=== PATIENT | female | born 1960 | race African-American/Black ===

== ENCOUNTER 2017-06-05 16:16 | Inpatient (IN) ==
[2017-06-05 18:32] LABS: Basophils % 0.6 % (0.0-0.8); Hematocrit 22.3 VOL% (35.7-47.0); Hemoglobin 6.7 GM/DL (12.0-16.0); Immature Granulocytes % 0.6 %; Immature Granulocytes Absolute 0.02 #; Lymphocytes # 0.5 10*3/uL (1.4-4.0); Lymphocytes % 14.8 % (21.3-54.2); Mean Corpuscular Hemoglobin 24 PG (27-34); Mean Corpuscular Volume 78.8 FL (87-102); Monocytes # 0.7 10*3/uL (0.11-0.8); Monocytes % 19.1 % (1.7-12.7); NRBC # 0.02 10*3/uL; Neutrophils # 2.2 10*3/uL (1.4-7.4); Neutrophils % 64.9 % (38.7-73.9); Platelet Count 166 T/CUMM (130-400); Red Blood Count 2.83 MC/CUMM (3.8-5.5); White Blood Count 3.5 T/CUMM (4-12)
[2017-06-05] MEDS ORDERED: guaiFENesin/DM ER 600-30 MG TABLET PO PRN (18:34)
[2017-06-05] MEDS ORDERED: MORPHINE 2 MG/1 ML SYRINGE IV PRN (18:34)
[2017-06-05] MEDS ORDERED: ONDANSETRON 4 MG/2 ML VIAL IV PRN (18:34)
[2017-06-05] MEDS ORDERED: DOCUSATE SODIUM 100 MG CAPSULE PO PRN (18:34)
[2017-06-05] MEDS ORDERED: diphenhydrAMINE CAP 25 MG CAPSULE PO PRN (18:34)
[2017-06-05 18:36] LABS: Albumin 2.7 G/DL (3.4-5.0); Bilirubin,Total 1.7 MG/DL (0.2-1.0); Total Protein 8.2 G/DL (6.4-8.3)
[2017-06-05 18:37] LABS: CKMB % 3.3 %; Osmolality,Calculated 315.1 MOS/KG (273-304); Potassium 4.1 MMOL/L (3.5-5.1)
[2017-06-05 18:43] LABS: Apearance,Urine CLEAR (Clear); Bacteria,Urine Occasional /HPF (Few); Bilirubin,Urine Negative (Negative); Blood, Urine Small mg/dL (Negative); Glucose,Urine (UA) 50 mg/dL (Negative); Ketones,Urine Negative (Negative); Nitrite,Urine Negative (Negative); Protein,Urine Negative; RBC,Urine 15 /HPF (0-4); Urine Color Yellow (Yellow); Urine Specific Gravity 1.009 (1.001-1.035); WBC,Urine 8 /HPF (0-6)
[2017-06-05 18:44] LABS: Troponin I Only 0.055 NG/ML (0.00-0.045)
[2017-06-05] MEDS ORDERED: SODIUM CHLORIDE 0.9% 1,000 ML IV PRN (19:00)
[2017-06-05] MEDS ORDERED: FUROSEMIDE 40 MG/4 ML VIAL IV SCH (19:00)
[2017-06-05 20:59] LABS: Hypochromasia 1+; Lymphocytes 17 % (20-55); Myelocytes 1 %; Ovalocytes Few; Platelet Estimate Adequate; Polychromasia Few; Segmented Neutrophils 75 % (50-85); Target Cells Few; Total Cells Counted 100
[2017-06-05 22:26] LABS: Troponin I Only 0.044 NG/ML (0.00-0.045)
[2017-06-05] MEDS: ENOXAPARIN 30 MG/0.3 ML SYRINGE SUBCUT SCH (22:27)
[2017-06-05] MEDS: FUROSEMIDE 40 MG/4 ML VIAL IV SCH (22:28)
[2017-06-05] MEDS: cloNIDine 0.1 MG TABLET PO SCH (22:28)
[2017-06-05 22:48] LABS: CKMB % 3.2 %
[2017-06-06 07:48] LABS: CKMB % 3.7 %
[2017-06-06 07:56] LABS: Calcium 9.1 MG/DL (8.5-10.1); Osmolality,Calculated 315.8 MOS/KG (273-304); Potassium 4.1 MMOL/L (3.5-5.1); Risk Ratio 4.17; Thyroid Stimulating Hormone 0.517 uIU/ml (0.358-3.74); VLDL CHOLESTEROL 17.2 MG/DL
[2017-06-06 07:57] LABS: Troponin I Only 0.047 NG/ML (0.00-0.045)
[2017-06-06 08:45] LABS: Basophils % 0.6 % (0.0-0.8); Eosinophils # 0.1 10*3/uL (0.0-0.87); Eosinophils % 3.5 % (0.00-10.9); Hematocrit 28.9 VOL% (35.7-47.0); Hematocrit 29.2 VOL% (35.7-47.0); Hemoglobin 9.2 GM/DL (12.0-16.0); Immature Granulocytes % 0.3 %; Immature Granulocytes Absolute 0.01 #; Lymphocytes # 0.4 10*3/uL (1.4-4.0); Lymphocytes % 12.8 % (21.3-54.2); Mean Corpuscular HGB Conc 30.8 GM/DL (32-36); Mean Corpuscular Hemoglobin 25 PG (27-34); Mean Corpuscular Volume 81.1 FL (87-102); Monocytes # 0.6 10*3/uL (0.11-0.8); Monocytes % 16.6 % (1.7-12.7); NRBC # 0.02 10*3/uL; Neutrophils # 2.3 10*3/uL (1.4-7.4); Neutrophils % 66.2 % (38.7-73.9); Platelet Count 135 T/CUMM (130-400); Red Cell Distribution Width 20.6 % (9.3-17.3); White Blood Count 3.4 T/CUMM (4-12)
[2017-06-06] MEDS: PANTOPRAZOLE 40 MG TABLET PO SCH (09:57)
[2017-06-06] MEDS: cloNIDine 0.1 MG TABLET PO SCH ×2 (09:57→21:04)
[2017-06-06] MEDS: FUROSEMIDE 40 MG/4 ML VIAL IV SCH ×2 (09:59→21:06)
[2017-06-06] MEDS ORDERED: SKIN HEALING OINT (AQUAPHOR) 50 GM TUBE TOP PRN (10:26)
[2017-06-06 11:38] LABS: Acanthocytes Few; Band Neutrophils 1 % (0-10); Eosinophils 1 % (0-10); Hypochromasia 2+; Lymphocytes 12 % (20-55); Macrocytosis 1+; Nucleated Red Blood Cells 1 (0-5); Platelet Estimate Decreased; Polychromasia Slight; Segmented Neutrophils 77 % (50-85); Spherocytes Few; Target Cells Slight; Total Cells Counted 100
[2017-06-06] MEDS ORDERED: GLUCAGON 1 MG VIAL IM PRN (17:24)
[2017-06-06] MEDS ORDERED: DEXTROSE 50% 25 GM/50 ML VIAL IV PRN (17:24)
[2017-06-06] MEDS: ACETAMINOPHEN 325 MG TABLET PO PRN (21:04)
[2017-06-06] MEDS: ENOXAPARIN 30 MG/0.3 ML SYRINGE SUBCUT SCH (21:05)
[2017-06-06] MEDS: INSULIN REGULAR 100 UNIT/ML SUBCUT SCH (21:05)
[2017-06-07] MEDS: ACETAMINOPHEN 325 MG TABLET PO PRN ×2 (01:34→21:28)
[2017-06-07 06:11] LABS: Basophils % 0.2 % (0.0-0.8); Hematocrit 28.5 VOL% (35.7-47.0); Hemoglobin 8.7 GM/DL (12.0-16.0); Immature Granulocytes % 0.2 %; Immature Granulocytes Absolute 0.01 #; Lymphocytes # 0.5 10*3/uL (1.4-4.0); Lymphocytes % 10.7 % (21.3-54.2); Mean Corpuscular HGB Conc 30.5 GM/DL (32-36); Mean Corpuscular Hemoglobin 25 PG (27-34); Monocytes # 0.7 10*3/uL (0.11-0.8); Monocytes % 13.3 % (1.7-12.7); NRBC # 0.02 10*3/uL; Neutrophils # 3.8 10*3/uL (1.4-7.4); Neutrophils % 75.6 % (38.7-73.9); Platelet Count 111 T/CUMM (130-400); Red Blood Count 3.52 MC/CUMM (3.8-5.5); Red Cell Distribution Width 21.5 % (9.3-17.3)
[2017-06-07 06:39] LABS: Anisocytosis 1+; Hypochromasia 1+
[2017-06-07 06:41] LABS: Albumin 2.8 G/DL (3.4-5.0); Bilirubin,Total 1.7 MG/DL (0.2-1.0); Calcium 9.1 MG/DL (8.5-10.1); Osmolality,Calculated 316.8 MOS/KG (273-304); Potassium 4.2 MMOL/L (3.5-5.1)
[2017-06-07] MEDS: FUROSEMIDE 40 MG/4 ML VIAL IV SCH ×2 (09:13→21:29)
[2017-06-07] MEDS: INSULIN REGULAR 100 UNIT/ML SUBCUT SCH ×4 (09:14→21:29)
[2017-06-07] MEDS: PANTOPRAZOLE 40 MG TABLET PO SCH (09:14)
[2017-06-07] MEDS: cloNIDine 0.1 MG TABLET PO SCH ×2 (09:14→21:29)
[2017-06-07 14:33] LABS: Basophils % 0.5 % (0.0-0.8); Hematocrit 28.8 VOL% (35.7-47.0); Hemoglobin 8.8 GM/DL (12.0-16.0); Immature Granulocytes % 0.2 %; Immature Granulocytes Absolute 0.01 #; Lymphocytes # 0.4 10*3/uL (1.4-4.0); Lymphocytes % 10.1 % (21.3-54.2); Mean Corpuscular HGB Conc 30.6 GM/DL (32-36); Mean Corpuscular Hemoglobin 25 PG (27-34); Mean Corpuscular Volume 82.3 FL (87-102); Monocytes # 0.5 10*3/uL (0.11-0.8); Neutrophils # 3.4 10*3/uL (1.4-7.4); Neutrophils % 78.2 % (38.7-73.9); Platelet Count 116 T/CUMM (130-400); Red Cell Distribution Width 21.8 % (9.3-17.3); White Blood Count 4.4 T/CUMM (4-12)
[2017-06-07 15:07] LABS: % Iron Saturation 9.8 % (18-50); Ferritin 32.8 ng/ml (8-252)
[2017-06-07 15:21] LABS: Lymphocytes 12 % (20-55); Segmented Neutrophils 80 % (50-85); Total Cells Counted 100
[2017-06-07 15:22] LABS: Platelet Estimate Adequate
[2017-06-07 15:23] LABS: Anisocytosis 1+; Hypochromasia 1+; Poikilocytosis 1+
[2017-06-07 15:24] LABS: Burr Cells Few; Elliptocytes Few; Target Cells Few
[2017-06-07 15:24] LABS: Total Protein 8.4 G/DL (6.4-8.3)
[2017-06-07 15:25] LABS: Schistocytes 1+; Spherocytes Few
[2017-06-07] MEDS: amLODIPine 5 MG TABLET PO SCH (16:40)
[2017-06-07] MEDS: ENOXAPARIN 30 MG/0.3 ML SYRINGE SUBCUT SCH (21:29)
[2017-06-08 05:03] LABS: Basophils % 0.2 % (0.0-0.8); Hemoglobin 8.7 GM/DL (12.0-16.0); Immature Granulocytes % 0.2 %; Immature Granulocytes Absolute 0.01 #; Lymphocytes # 0.6 10*3/uL (1.4-4.0); Lymphocytes % 11.8 % (21.3-54.2); Mean Corpuscular HGB Conc 31.1 GM/DL (32-36); Mean Corpuscular Hemoglobin 25 PG (27-34); Mean Corpuscular Volume 80.9 FL (87-102); Monocytes # 0.7 10*3/uL (0.11-0.8); Monocytes % 14.9 % (1.7-12.7); Neutrophils # 3.6 10*3/uL (1.4-7.4); Neutrophils % 72.9 % (38.7-73.9); Platelet Count 112 T/CUMM (130-400); Red Blood Count 3.46 MC/CUMM (3.8-5.5); Red Cell Distribution Width 22.1 % (9.3-17.3); White Blood Count 4.9 T/CUMM (4-12)
[2017-06-08 05:26] LABS: Burr Cells Slight; Giant Platelets Few; Hypochromasia 1+; Ovalocytes Slight; Platelet Estimate Decreased
[2017-06-08 06:12] LABS: Albumin 2.9 G/DL (3.4-5.0); Bilirubin,Total 1.7 MG/DL (0.2-1.0); Calcium 8.8 MG/DL (8.5-10.1); Osmolality,Calculated 310.3 MOS/KG (273-304); Total Protein 8.4 G/DL (6.4-8.3)
[2017-06-08] MEDS: amLODIPine 5 MG TABLET PO SCH (09:00)
[2017-06-08] MEDS: cloNIDine 0.1 MG TABLET PO SCH ×2 (09:00→21:06)
[2017-06-08] MEDS: PANTOPRAZOLE 40 MG TABLET PO SCH (09:00)
[2017-06-08] MEDS: INSULIN REGULAR 100 UNIT/ML SUBCUT SCH ×4 (09:00→21:05)
[2017-06-08] MEDS: FUROSEMIDE 40 MG/4 ML VIAL IV SCH ×2 (09:01→21:07)
[2017-06-08 09:41] LABS: Albumin (SPE) 3.7 G/DL (3.2-5.3); Albumin (SPE) Rel % 43.8 %; Alpha 1 (SPE) 0.2 G/DL (0.1-0.4); Alpha 2 (SPE) 0.6 G/DL (0.4-1.0); Beta (SPE) 0.9 G/DL (0.5-1.1); Beta (SPE) Rel % 10.4 %; Gamma (SPE) Rel % 35.8 %; Total Protein (Chem) 8.4 G/DL (6.4-8.3)
[2017-06-08] MEDS: ACETAMINOPHEN 325 MG TABLET PO PRN ×2 (16:41→21:06)
[2017-06-08] MEDS: hydrALAZINE 25 MG TABLET PO SCH (21:06)
[2017-06-08] MEDS: ENOXAPARIN 30 MG/0.3 ML SYRINGE SUBCUT SCH (21:06)
[2017-06-09 04:48] LABS: Basophils % 0.2 % (0.0-0.8); Eosinophils # 0.1 10*3/uL (0.0-0.87); Eosinophils % 2.4 % (0.00-10.9); Hematocrit 24.9 VOL% (35.7-47.0); Immature Granulocytes % 0.4 %; Immature Granulocytes Absolute 0.02 #; Lymphocytes # 0.5 10*3/uL (1.4-4.0); Lymphocytes % 10.4 % (21.3-54.2); Mean Corpuscular HGB Conc 32.1 GM/DL (32-36); Mean Corpuscular Hemoglobin 26 PG (27-34); Mean Corpuscular Volume 79.6 FL (87-102); Monocytes # 0.8 10*3/uL (0.11-0.8); Monocytes % 15.7 % (1.7-12.7); Neutrophils # 3.6 10*3/uL (1.4-7.4); Neutrophils % 70.9 % (38.7-73.9); Platelet Count 97 T/CUMM (130-400); Red Blood Count 3.13 MC/CUMM (3.8-5.5); Red Cell Distribution Width 22.8 % (9.3-17.3); White Blood Count 5.1 T/CUMM (4-12)
[2017-06-09 05:08] LABS: Eosinophils 4 % (0-10); Giant Platelets Few; Hypochromasia 1+; Lymphocytes 5 % (20-55); Ovalocytes Slight; Platelet Estimate Decreased; Segmented Neutrophils 78 % (50-85); Total Cells Counted 100
[2017-06-09 05:12] LABS: Calcium 8.4 MG/DL (8.5-10.1); Potassium 3.8 MMOL/L (3.5-5.1)
[2017-06-09] MEDS ORDERED: EPOETIN ALFA 10,000 UNIT/1 ML VIAL SUBCUT ONE (07:52)
[2017-06-09] MEDS: INSULIN REGULAR 100 UNIT/ML SUBCUT SCH ×4 (10:17→21:18)
[2017-06-09] MEDS: PANTOPRAZOLE 40 MG TABLET PO SCH (10:18)
[2017-06-09] MEDS: amLODIPine 5 MG TABLET PO SCH (10:18)
[2017-06-09] MEDS: ASPIRIN EC 81 MG TABLET PO SCH (10:18)
[2017-06-09] MEDS: cloNIDine 0.1 MG TABLET PO SCH ×3 (10:19→21:24)
[2017-06-09] MEDS: hydrALAZINE 25 MG TABLET PO SCH (10:19)
[2017-06-09] MEDS: FUROSEMIDE 40 MG/4 ML VIAL IV SCH ×2 (10:19→21:24)
[2017-06-09 12:08] LABS: PT Mix 1:1 (Mayo Reflex) 12.6 sec; Thrombin Time (Bovine), P 21 sec (15 - 23)
[2017-06-09 12:12] LABS: DRVVT Mix Ratio (Mayo Reflex) 1.2 ratio (0.0 - 1.1)
[2017-06-09 12:14] LABS: DRVVT Confirmation 0.7 ratio (0.0 - 1.1)
[2017-06-09 12:23] LABS: Anti SS-A Antibodies 37 EU/ML; Anti SS-B Antibodies < 16 EU/ML
[2017-06-09 14:14] LABS: Double Stranded DNA Antibodies < 25.0 IU/ML
[2017-06-09 14:15] LABS: Anti-Nuclear Antibody Pattern SPECKLED
[2017-06-09] MEDS: predniSONE 10 MG TABLET PO SCH (17:47)
[2017-06-09] MEDS: ENOXAPARIN 30 MG/0.3 ML SYRINGE SUBCUT SCH (21:24)
[2017-06-09] MEDS: ACETAMINOPHEN 325 MG TABLET PO PRN (21:24)
[2017-06-10 04:57] LABS: Basophils % 0.2 % (0.0-0.8); Hematocrit 25.6 VOL% (35.7-47.0); Hemoglobin 7.9 GM/DL (12.0-16.0); Immature Granulocytes % 0.2 %; Immature Granulocytes Absolute 0.01 #; Lymphocytes # 0.4 10*3/uL (1.4-4.0); Lymphocytes % 7.3 % (21.3-54.2); Mean Corpuscular HGB Conc 30.9 GM/DL (32-36); Mean Corpuscular Hemoglobin 25 PG (27-34); Mean Corpuscular Volume 81.3 FL (87-102); Monocytes # 0.6 10*3/uL (0.11-0.8); Monocytes % 12.6 % (1.7-12.7); Neutrophils # 3.8 10*3/uL (1.4-7.4); Neutrophils % 79.7 % (38.7-73.9); Red Blood Count 3.15 MC/CUMM (3.8-5.5); Red Cell Distribution Width 23.1 % (9.3-17.3); White Blood Count 4.8 T/CUMM (4-12)
[2017-06-10 05:00] LABS: Platelet Count 92 T/CUMM (130-400)
[2017-06-10 05:23] LABS: Calcium 8.6 MG/DL (8.5-10.1); Potassium 4.1 MMOL/L (3.5-5.1)
[2017-06-10 05:25] LABS: Hypochromasia 2+; Lymphocytes 4 % (20-55); Microcytosis 1+; Segmented Neutrophils 87 % (50-85); Total Cells Counted 100
[2017-06-10 05:26] LABS: Acanthocytes Few; Target Cells Slight
[2017-06-10 05:27] LABS: Platelet Estimate Decreased; Tear Drop Cells Slight
[2017-06-10] MEDS: predniSONE 10 MG TABLET PO SCH (08:50)
[2017-06-10] MEDS: cloNIDine 0.1 MG TABLET PO SCH (08:51)
[2017-06-10] MEDS: ASPIRIN EC 81 MG TABLET PO SCH (08:52)
[2017-06-10] MEDS: amLODIPine 5 MG TABLET PO SCH (08:52)
[2017-06-10] MEDS: PANTOPRAZOLE 40 MG TABLET PO SCH (08:52)
[2017-06-10] MEDS: INSULIN REGULAR 100 UNIT/ML SUBCUT SCH ×4 (08:55→22:15)
[2017-06-10] MEDS: FUROSEMIDE 40 MG/4 ML VIAL IV SCH ×2 (08:56→22:16)
[2017-06-10] MEDS ORDERED: EPOETIN ALFA 10,000 UNIT/1 ML VIAL SUBCUT SCH (09:00)
[2017-06-10 17:46] LABS: DRVVT Screen Ratio 1.2 ratio (0.0 - 1.1); INR 1.4
[2017-06-10] MEDS: ENOXAPARIN 30 MG/0.3 ML SYRINGE SUBCUT SCH (22:15)
[2017-06-10] MEDS: ACETAMINOPHEN 325 MG TABLET PO PRN (22:16)
[2017-06-11 06:18] LABS: Basophils % 0.2 % (0.0-0.8); Hematocrit 26.2 VOL% (35.7-47.0); Lymphocytes # 0.5 10*3/uL (1.4-4.0); Lymphocytes % 11.7 % (21.3-54.2); Mean Corpuscular HGB Conc 30.5 GM/DL (32-36); Mean Corpuscular Hemoglobin 25 PG (27-34); Mean Corpuscular Volume 82.4 FL (87-102); Monocytes # 0.7 10*3/uL (0.11-0.8); Monocytes % 15.4 % (1.7-12.7); Neutrophils # 3.4 10*3/uL (1.4-7.4); Neutrophils % 72.7 % (38.7-73.9); Platelet Count 96 T/CUMM (130-400); Red Blood Count 3.18 MC/CUMM (3.8-5.5); Red Cell Distribution Width 23.4 % (9.3-17.3); White Blood Count 4.6 T/CUMM (4-12)
[2017-06-11 06:41] LABS: Calcium 8.6 MG/DL (8.5-10.1); Osmolality,Calculated 310.4 MOS/KG (273-304); Potassium 3.9 MMOL/L (3.5-5.1)
[2017-06-11 07:05] LABS: Hypochromasia 2+; Microcytosis 1+; Ovalocytes Slight; Platelet Estimate Decreased; Target Cells Slight; Tear Drop Cells Slight
[2017-06-11] MEDS: PANTOPRAZOLE 40 MG TABLET PO SCH (09:56)
[2017-06-11] MEDS: amLODIPine 5 MG TABLET PO SCH (09:56)
[2017-06-11] MEDS: predniSONE 10 MG TABLET PO SCH (09:56)
[2017-06-11] MEDS: ASPIRIN EC 81 MG TABLET PO SCH (09:56)
[2017-06-11] MEDS: INSULIN REGULAR 100 UNIT/ML SUBCUT SCH ×2 (10:05→12:52)
[2017-06-11] MEDS: FUROSEMIDE 40 MG/4 ML VIAL IV SCH (10:05)
[2017-06-11] MEDS ORDERED: TUBERCULIN SKIN TEST 0.1 ML SYRINGE INTRADERM ONE (11:00)
[2017-06-11 11:48] VITALS: BP 140/57
[2017-06-11 15:41] LABS: Phospholipid Ab IgM, S < 9.4 MPL
== END 2017-06-11 12:45 | DRG 291 ==
LOC: N.ED 16:16 → N.EDINP 18:18 → N.TELEN 19:29

== ENCOUNTER 2017-06-21 08:53 | Inpatient (IN) ==
[2017-06-21] MEDS ORDERED: FUROSEMIDE 100 MG/10 ML VIAL ONE (09:54)
[2017-06-21] MEDS ORDERED: FUROSEMIDE 20 MG/2 ML VIAL ONE (10:10)
[2017-06-21 10:37] LABS: Basophils % 0.4 % (0.0-0.8); Eosinophils % 0.4 % (0.00-10.9); Hematocrit 28.2 VOL% (35.7-47.0); Hemoglobin 8.8 GM/DL (12.0-16.0); Immature Granulocytes % 0.4 %; Immature Granulocytes Absolute 0.02 #; Lymphocytes # 0.2 10*3/uL (1.4-4.0); Lymphocytes % 4.9 % (21.3-54.2); Mean Corpuscular HGB Conc 31.2 GM/DL (32-36); Mean Corpuscular Hemoglobin 25 PG (27-34); Monocytes # 0.6 10*3/uL (0.11-0.8); Monocytes % 11.5 % (1.7-12.7); Neutrophils % 82.4 % (38.7-73.9); Platelet Count 136 T/CUMM (130-400); Red Blood Count 3.48 MC/CUMM (3.8-5.5); Red Cell Distribution Width 24.9 % (9.3-17.3); White Blood Count 4.9 T/CUMM (4-12)
[2017-06-21 10:40] LABS: Apearance,Urine CLEAR (Clear); Bacteria,Urine Occasional /HPF (Few); Bilirubin,Urine Negative (Negative); Blood, Urine Negative (Negative); Glucose,Urine (UA) 50 mg/dL (Negative); Ketones,Urine Negative (Negative); Mucus,Urine Occasional /LPF (Occasional); Nitrite,Urine Negative (Negative); Protein,Urine Negative; RBC,Urine 1 /HPF (0-4); Squamous Epithelial Cell,Urine Occasional /HPF (0-10); Urine Color Yellow (Yellow); Urine Specific Gravity 1.008 (1.001-1.035); WBC,Urine 6 /HPF (0-6)
[2017-06-21 10:50] LABS: Albumin 2.8 G/DL (3.4-5.0); Bilirubin,Total 1.2 MG/DL (0.2-1.0); Osmolality,Calculated 324.7 MOS/KG (273-304); Potassium 5.5 MMOL/L (3.5-5.1); Total Protein 8.3 G/DL (6.4-8.3)
[2017-06-21 10:59] LABS: Allen Test Positive
[2017-06-21 11:00] LABS: ABG Base Excess -3.5 MMOL/L (-2.5-2.5); ABG HCO3 21.3 MMOL/L (20-26); ABG Oxygen Saturation 88.4 % (95-100); ABG PCO2 33.1 MM HG (35-48); ABG PH 7.402 (7.35-7.45); ABG PO2 58.6 MM HG (80-95); ABG TCO2 19.1 MMOL/L (23-27)
[2017-06-21] MEDS ORDERED: FUROSEMIDE 100 MG/10 ML VIAL IV STA (11:04)
[2017-06-21 11:55] LABS: Hypochromasia 1+; Lymphocytes 3 % (20-55); Segmented Neutrophils 90 % (50-85); Total Cells Counted 100
[2017-06-21 11:56] LABS: Microcytosis 1+; Ovalocytes Slight
[2017-06-21 11:57] LABS: Platelet Estimate Adequate
[2017-06-21] MEDS ORDERED: ONDANSETRON 4 MG/2 ML VIAL IV PRN (13:41)
[2017-06-21] MEDS ORDERED: SODIUM POLYSTYRENE SULFATE 15 GM/60 ML BOTTLE RECTAL ONE (13:51)
[2017-06-21] MEDS ORDERED: DEXTROSE 50% 25 GM/50 ML VIAL IV PRN (13:56)
[2017-06-21] MEDS ORDERED: GLUCAGON 1 MG VIAL IM PRN (13:56)
[2017-06-21] MEDS ORDERED: ENOXAPARIN 30 MG/0.3 ML SYRINGE SUBCUT SCH (14:00)
[2017-06-21] MEDS ORDERED: PANTOPRAZOLE 40 MG VIAL IV SCH (14:00)
[2017-06-21] MEDS ORDERED: LACTULOSE 160 GM/240 ML BOTTLE RECTAL SCH (18:00)
[2017-06-21 18:05] LABS: Troponin I Only 0.043 NG/ML (0.00-0.045)
[2017-06-21] MEDS ORDERED: CALCIUM GLUCONATE 2,000 MG in SODIUM CHLORIDE 0.9% 100 ML IV ONE (18:13)
[2017-06-21] MEDS: FUROSEMIDE 40 MG/4 ML VIAL IV SCH ×2 (18:19→21:36)
[2017-06-21] MEDS ORDERED: cefTRIAXone 1,000 MG in SYRINGE 1 EACH IV SCH (19:00)
[2017-06-21 19:01] LABS: ABG Base Excess -4.3 MMOL/L (-2.5-2.5); ABG HCO3 20.8 MMOL/L (20-26); ABG Oxygen Saturation 92.3 % (95-100); ABG PCO2 35.4 MM HG (35-48); ABG PO2 69.3 MM HG (80-95); ABG TCO2 19.1 MMOL/L (23-27)
[2017-06-21] MEDS: INSULIN LISPRO 100 UNIT/ML SUBCUT SCH (19:19)
[2017-06-21] MEDS ORDERED: LACTULOSE 20 GM/30 ML UDCUP PO SCH (21:00)
[2017-06-21] MEDS ORDERED: RIFAXIMIN 550 MG TABLET PO SCH (21:00)
[2017-06-21] MEDS: SODIUM BICARB INJ 50 MEQ in STERILE WATER INJ 1,000 ML IV SCH (21:35)
[2017-06-22] MEDS: FUROSEMIDE 40 MG/4 ML VIAL IV SCH ×4 (02:30→20:25)
[2017-06-22] MEDS: INSULIN LISPRO 100 UNIT/ML SUBCUT SCH ×4 (02:30→19:10)
[2017-06-22 04:49] LABS: Basophils % 0.3 % (0.0-0.8); Eosinophils % 0.7 % (0.00-10.9); Hematocrit 29.1 VOL% (35.7-47.0); Hemoglobin 8.8 GM/DL (12.0-16.0); Immature Granulocytes % 0.5 %; Immature Granulocytes Absolute 0.03 #; Lymphocytes # 0.2 10*3/uL (1.4-4.0); Lymphocytes % 4.2 % (21.3-54.2); Mean Corpuscular HGB Conc 30.2 GM/DL (32-36); Mean Corpuscular Hemoglobin 25 PG (27-34); Mean Corpuscular Volume 81.7 FL (87-102); Monocytes # 0.7 10*3/uL (0.11-0.8); Monocytes % 11.8 % (1.7-12.7); Neutrophils # 4.8 10*3/uL (1.4-7.4); Neutrophils % 82.5 % (38.7-73.9); Platelet Count 131 T/CUMM (130-400); Red Blood Count 3.56 MC/CUMM (3.8-5.5); Red Cell Distribution Width 24.1 % (9.3-17.3); White Blood Count 5.8 T/CUMM (4-12)
[2017-06-22 05:26] LABS: Albumin 2.8 G/DL (3.4-5.0); Bilirubin,Total 1.6 MG/DL (0.2-1.0); Calcium 9.4 MG/DL (8.5-10.1); Osmolality,Calculated 329.3 MOS/KG (273-304); Potassium 4.8 MMOL/L (3.5-5.1); Thyroid Stimulating Hormone 0.338 uIU/ml (0.358-3.74); Total Protein 8.1 G/DL (6.4-8.3)
[2017-06-22 05:37] LABS: Giant Platelets Few; Hypochromasia 1+; Microcytosis Slight; Ovalocytes Slight; Platelet Estimate Normal; Segmented Neutrophils 90 % (50-85); Total Cells Counted 100
[2017-06-22] MEDS: LACTULOSE 20 GM/30 ML UDCUP NG SCH ×3 (09:12→18:14)
[2017-06-22] MEDS: RIFAXIMIN 550 MG TABLET NG SCH ×2 (09:12→20:38)
[2017-06-22] MEDS: PANTOPRAZOLE 40 MG VIAL IV SCH ×2 (09:13→20:29)
[2017-06-22] MEDS: methylPREDNISolone SOD SUC 40 MG/1 ML VIAL IV SCH (09:13)
[2017-06-22 11:45] LABS: Troponin I Only 0.049 NG/ML (0.00-0.045)
[2017-06-22] MEDS ORDERED: VANCOMYCIN INJ 1,500 MG in SODIUM CHLORIDE 0.9% 500 ML IV ONE (12:00)
[2017-06-22] MEDS: amLODIPine 2.5 MG TABLET PO SCH (12:06)
[2017-06-22] MEDS: HYDROXYCHLOROQUINE 200 MG TABLET PO SCH ×2 (12:07→20:38)
[2017-06-22] MEDS: PIPERACILLIN/TAZOBACTAM 3,375 MG in SODIUM CHLORIDE 0.9% 100 ML IV SCH ×2 (12:07→23:45)
[2017-06-22] MEDS: SODIUM BICARB INJ 50 MEQ in STERILE WATER INJ 1,000 ML IV SCH (19:12)
[2017-06-22 20:46] LABS: INR 1.3; PT Patient Result 13.5 SECS
[2017-06-22 21:49] LABS: Hepatitis A Ab IgM Quant 0.09 Index; Hepatitis A Ab IgM Result Negative (Negative); Hepatitis B Core IgM Quant 0.18 Index; Hepatitis B Core IgM Result Negative (Negative); Hepatitis B Surface Ag Result Negative (Negative); Hepatitis C Virus Ab Quant 0.12 Index; Hepatitis C Virus Ab Result Negative (Negative)
[2017-06-23] MEDS: INSULIN LISPRO 100 UNIT/ML SUBCUT SCH ×5 (00:03→23:27)
[2017-06-23] MEDS: FUROSEMIDE 40 MG/4 ML VIAL IV SCH ×3 (01:10→14:47)
[2017-06-23] MEDS: LACTULOSE 20 GM/30 ML UDCUP NG SCH ×4 (01:12→17:42)
[2017-06-23 04:40] LABS: Basophils % 0.3 % (0.0-0.8); Eosinophils # 0.1 10*3/uL (0.0-0.87); Eosinophils % 0.9 % (0.00-10.9); Hematocrit 27.6 VOL% (35.7-47.0); Hemoglobin 8.5 GM/DL (12.0-16.0); Immature Granulocytes % 0.5 %; Immature Granulocytes Absolute 0.03 #; Lymphocytes # 0.3 10*3/uL (1.4-4.0); Lymphocytes % 4.8 % (21.3-54.2); Mean Corpuscular HGB Conc 30.8 GM/DL (32-36); Mean Corpuscular Hemoglobin 25 PG (27-34); Mean Corpuscular Volume 81.2 FL (87-102); Monocytes # 0.8 10*3/uL (0.11-0.8); Monocytes % 11.7 % (1.7-12.7); NRBC # 0.02 10*3/uL; Neutrophils # 5.3 10*3/uL (1.4-7.4); Neutrophils % 81.8 % (38.7-73.9); Platelet Count 140 T/CUMM (130-400); Red Cell Distribution Width 23.7 % (9.3-17.3); White Blood Count 6.5 T/CUMM (4-12)
[2017-06-23 05:05] LABS: Band Neutrophils 1 % (0-10); Giant Platelets Few; Hypochromasia 1+; Lymphocytes 6 % (20-55); Ovalocytes Slight; Platelet Estimate Normal; Segmented Neutrophils 83 % (50-85); Total Cells Counted 100
[2017-06-23 05:06] LABS: Microcytosis Slight
[2017-06-23 05:11] LABS: Troponin I Only 0.054 NG/ML (0.00-0.045)
[2017-06-23 05:30] LABS: Calcium 9.3 MG/DL (8.5-10.1); Osmolality,Calculated 329.3 MOS/KG (273-304); Potassium 4.6 MMOL/L (3.5-5.1)
[2017-06-23] MEDS ORDERED: CLINDAMYCIN INJ 900 MG in PREMIX 1 EACH IV ONE ×2 (07:05→15:00)
[2017-06-23 07:57] LABS: Allen Test Positive
[2017-06-23 07:59] LABS: ABG Base Excess -0.1 MMOL/L (-2.5-2.5); ABG HCO3 24.4 MMOL/L (20-26); ABG Oxygen Saturation 99.3 % (95-100); ABG PCO2 37.8 MM HG (35-48); ABG PH 7.415 (7.35-7.45); ABG TCO2 22.5 MMOL/L (23-27)
[2017-06-23] MEDS: methylPREDNISolone SOD SUC 40 MG/1 ML VIAL IV SCH (08:50)
[2017-06-23] MEDS: PANTOPRAZOLE 40 MG VIAL IV SCH ×2 (08:51→21:42)
[2017-06-23] MEDS: RIFAXIMIN 550 MG TABLET NG SCH ×2 (08:52→21:45)
[2017-06-23] MEDS: amLODIPine 2.5 MG TABLET PO SCH (08:53)
[2017-06-23] MEDS: HYDROXYCHLOROQUINE 200 MG TABLET PO SCH ×2 (08:53→21:45)
[2017-06-23] MEDS: ASPIRIN CHEW 81 MG TABLET PO SCH (08:53)
[2017-06-23] MEDS ORDERED: VANCOMYCIN INJ 750 MG in SODIUM CHLORIDE 0.9% 250 ML IV PRN (09:11)
[2017-06-23] MEDS: PIPERACILLIN/TAZOBACTAM 3,375 MG in SODIUM CHLORIDE 0.9% 100 ML IV SCH ×2 (12:03→23:01)
[2017-06-23 14:05] LABS: Lymphocytes,CSF 100 %; Red Blood Cell,CSF < 1 C/CUMM; White Blood Cell,CSF 2 C/CUMM
[2017-06-23 14:06] LABS: Appearance,CSF Clear
[2017-06-23 14:31] LABS: Glucose,CSF 91 MG/DL (40-70)
[2017-06-23] MEDS ORDERED: HEPARIN 5,000 UNIT/1 ML VIAL ONE (15:05)
[2017-06-23] MEDS ORDERED: LIDOCAINE 1%/EPI INJ 20 ML VIAL ONE (15:05)
[2017-06-23] MEDS ORDERED: BUPIVACAINE 0.25% 50 ML VIAL ONE (15:05)
[2017-06-23] MEDS ORDERED: CLINDAMYCIN INJ 50 ML IV ONE (15:05)
[2017-06-23 17:20] LABS: ABG Base Excess -2.6 MMOL/L (-2.5-2.5); ABG HCO3 21.9 MMOL/L (20-26); ABG Oxygen Saturation 99.6 % (95-100); ABG PCO2 36.7 MM HG (35-48); ABG PH 7.394 (7.35-7.45); ABG PO2 409.4 MM HG (80-95)
[2017-06-23] MEDS: PROPOFOL 1,000 MG/100 ML BOTTLE IV SCH (19:45)
[2017-06-23] MEDS ORDERED: VANCOMYCIN INJ 750 MG in SODIUM CHLORIDE 0.9% 250 ML IV ONE (21:00)
[2017-06-24] MEDS: LACTULOSE 20 GM/30 ML UDCUP NG SCH ×4 (01:00→18:39)
[2017-06-24] MEDS: PROPOFOL 1,000 MG/100 ML BOTTLE IV SCH ×2 (01:00→05:54)
[2017-06-24 04:56] LABS: ABG Base Excess 0.9 MMOL/L (-2.5-2.5); ABG HCO3 25.2 MMOL/L (20-26); ABG Oxygen Saturation 98.2 % (95-100); ABG PH 7.405 (7.35-7.45); ABG TCO2 23.7 MMOL/L (23-27); Pt O2 Delivery Device Ventilator
[2017-06-24] MEDS: INSULIN LISPRO 100 UNIT/ML SUBCUT SCH ×3 (05:46→18:39)
[2017-06-24 05:58] LABS: Basophils % 0.2 % (0.0-0.8); Eosinophils # 0.1 10*3/uL (0.0-0.87); Eosinophils % 0.9 % (0.00-10.9); Hematocrit 25.9 VOL% (35.7-47.0); Hemoglobin 8.4 GM/DL (12.0-16.0); Immature Granulocytes % 0.3 %; Immature Granulocytes Absolute 0.02 #; Lymphocytes # 0.2 10*3/uL (1.4-4.0); Lymphocytes % 3.8 % (21.3-54.2); Mean Corpuscular HGB Conc 32.4 GM/DL (32-36); Mean Corpuscular Hemoglobin 26 PG (27-34); Mean Corpuscular Volume 80.2 FL (87-102); Monocytes # 0.6 10*3/uL (0.11-0.8); Monocytes % 10.1 % (1.7-12.7); NRBC # 0.02 10*3/uL; Neutrophils # 5.4 10*3/uL (1.4-7.4); Neutrophils % 84.7 % (38.7-73.9); Platelet Count 105 T/CUMM (130-400); Red Blood Count 3.23 MC/CUMM (3.8-5.5); Red Cell Distribution Width 24.2 % (9.3-17.3); White Blood Count 6.3 T/CUMM (4-12)
[2017-06-24 06:21] LABS: Band Neutrophils 1 % (0-10); Hypochromasia 1+; Lymphocytes 6 % (20-55); Segmented Neutrophils 89 % (50-85); Total Cells Counted 100
[2017-06-24 06:22] LABS: Acanthocytes Few; Microcytosis 1+; Platelet Estimate Decreased; Polychromasia Slight; Target Cells Slight
[2017-06-24 06:34] LABS: Albumin 2.7 G/DL (3.4-5.0); Bilirubin,Direct 0.84 MG/DL (0.0-0.20); Bilirubin,Indirect 0.9 MG/DL (0.0-1.0); Bilirubin,Total 1.7 MG/DL (0.2-1.0); Total Protein 7.9 G/DL (6.4-8.3)
[2017-06-24 06:40] LABS: Osmolality,Calculated 324.1 MOS/KG (273-304); Potassium 3.6 MMOL/L (3.5-5.1)
[2017-06-24] MEDS: methylPREDNISolone SOD SUC 40 MG/1 ML VIAL IV SCH (08:56)
[2017-06-24] MEDS: amLODIPine 2.5 MG TABLET PO SCH (08:56)
[2017-06-24] MEDS: HYDROXYCHLOROQUINE 200 MG TABLET PO SCH ×2 (08:56→20:39)
[2017-06-24] MEDS: ASPIRIN CHEW 81 MG TABLET PO SCH (08:56)
[2017-06-24] MEDS: RIFAXIMIN 550 MG TABLET NG SCH ×2 (08:56→20:39)
[2017-06-24] MEDS: PANTOPRAZOLE 40 MG VIAL IV SCH ×2 (08:56→20:39)
[2017-06-24] MEDS: EPOETIN ALFA 10,000 UNIT/1 ML VIAL SUBCUT SCH (08:57)
[2017-06-24 09:10] LABS: ABG Base Excess 1.5 MMOL/L (-2.5-2.5); ABG HCO3 25.8 MMOL/L (20-26); ABG Oxygen Saturation 99.3 % (95-100); ABG PCO2 38.1 MM HG (35-48); ABG PH 7.437 (7.35-7.45); ABG TCO2 23.8 MMOL/L (23-27)
[2017-06-24] MEDS ORDERED: amLODIPine 2.5 MG TABLET PO ONE (10:49)
[2017-06-24] MEDS: PIPERACILLIN/TAZOBACTAM 3,375 MG in SODIUM CHLORIDE 0.9% 100 ML IV SCH ×2 (12:05→23:50)
[2017-06-24 12:12] LABS: ABG Base Excess 1.4 MMOL/L (-2.5-2.5); ABG HCO3 25.3 MMOL/L (20-26); ABG PCO2 42.8 MM HG (35-48); ABG PH 7.399 (7.35-7.45); ABG PO2 41.8 MM HG (80-95); ABG TCO2 24.6 MMOL/L (23-27)
[2017-06-24 13:03] LABS: ABG HCO3 26.2 MMOL/L (20-26); ABG Oxygen Saturation 96.3 % (95-100); ABG PCO2 39.3 MM HG (35-48); ABG PH 7.442 (7.35-7.45); ABG PO2 88.9 MM HG (80-95); ABG TCO2 27.4 MMOL/L (23-27)
[2017-06-25] MEDS: INSULIN LISPRO 100 UNIT/ML SUBCUT SCH ×4 (00:55→18:00)
[2017-06-25] MEDS: LACTULOSE 20 GM/30 ML UDCUP NG SCH ×4 (01:12→18:01)
[2017-06-25 05:29] LABS: Basophils % 0.3 % (0.0-0.8); Eosinophils # 0.2 10*3/uL (0.0-0.87); Eosinophils % 3.3 % (0.00-10.9); Hematocrit 26.1 VOL% (35.7-47.0); Hemoglobin 8.3 GM/DL (12.0-16.0); Immature Granulocytes % 0.6 %; Immature Granulocytes Absolute 0.04 #; Lymphocytes # 0.4 10*3/uL (1.4-4.0); Lymphocytes % 6.4 % (21.3-54.2); Mean Corpuscular HGB Conc 31.8 GM/DL (32-36); Mean Corpuscular Hemoglobin 26 PG (27-34); Mean Corpuscular Volume 80.1 FL (87-102); Monocytes # 0.9 10*3/uL (0.11-0.8); Monocytes % 12.9 % (1.7-12.7); NRBC # 0.04 10*3/uL; Neutrophils # 5.2 10*3/uL (1.4-7.4); Neutrophils % 76.5 % (38.7-73.9); Platelet Count 112 T/CUMM (130-400); Red Blood Count 3.26 MC/CUMM (3.8-5.5); Red Cell Distribution Width 24.5 % (9.3-17.3); White Blood Count 6.8 T/CUMM (4-12)
[2017-06-25 06:00] LABS: Hypochromasia 2+; Microcytosis 1+; Ovalocytes Slight; Polychromasia Slight; Target Cells Slight
[2017-06-25 06:01] LABS: Platelet Estimate Decreased
[2017-06-25 06:08] LABS: Calcium 8.8 MG/DL (8.5-10.1); Osmolality,Calculated 310.7 MOS/KG (273-304); Potassium 3.2 MMOL/L (3.5-5.1)
[2017-06-25] MEDS: CIPROFLOXACIN INJ 200 MG in PREMIX 1 EACH IV SCH (08:16)
[2017-06-25] MEDS: HYDROXYCHLOROQUINE 200 MG TABLET PO SCH ×2 (08:16→20:13)
[2017-06-25] MEDS: PANTOPRAZOLE 40 MG VIAL IV SCH ×2 (08:16→20:11)
[2017-06-25] MEDS: RIFAXIMIN 550 MG TABLET NG SCH ×2 (08:16→20:13)
[2017-06-25] MEDS: ASPIRIN CHEW 81 MG TABLET PO SCH (08:16)
[2017-06-25] MEDS: amLODIPine 5 MG TABLET PO SCH (08:16)
[2017-06-25] MEDS: methylPREDNISolone SOD SUC 40 MG/1 ML VIAL IV SCH (08:17)
[2017-06-25] MEDS: PIPERACILLIN/TAZOBACTAM 3,375 MG in SODIUM CHLORIDE 0.9% 100 ML IV SCH (11:37)
[2017-06-25] MEDS ORDERED: HEPARIN 10,000 UNIT/10 ML VIAL IV PRN (18:39)
[2017-06-25] MEDS ORDERED: VANCOMYCIN INJ 750 MG in SODIUM CHLORIDE 0.9% 250 ML IV ONE (21:00)
[2017-06-26] MEDS: LACTULOSE 20 GM/30 ML UDCUP NG SCH ×5 (00:05→23:50)
[2017-06-26] MEDS: PIPERACILLIN/TAZOBACTAM 3,375 MG in SODIUM CHLORIDE 0.9% 100 ML IV SCH ×3 (00:05→23:40)
[2017-06-26] MEDS: INSULIN LISPRO 100 UNIT/ML SUBCUT SCH ×5 (02:11→23:39)
[2017-06-26 03:41] LABS: ABG Base Excess 3.9 MMOL/L (-2.5-2.5); ABG HCO3 27.9 MMOL/L (20-26); ABG Oxygen Saturation 98.5 % (95-100); ABG PCO2 44.4 MM HG (35-48); ABG TCO2 26.5 MMOL/L (23-27); Allen Test Positive
[2017-06-26 07:13] LABS: Basophils % 0.2 % (0.0-0.8); Eosinophils # 0.3 10*3/uL (0.0-0.87); Eosinophils % 3.8 % (0.00-10.9); Hematocrit 24.1 VOL% (35.7-47.0); Immature Granulocytes % 0.4 %; Immature Granulocytes Absolute 0.03 #; Lymphocytes # 0.5 10*3/uL (1.4-4.0); Lymphocytes % 5.9 % (21.3-54.2); Mean Corpuscular HGB Conc 31.5 GM/DL (32-36); Mean Corpuscular Hemoglobin 26 PG (27-34); Mean Corpuscular Volume 82.3 FL (87-102); Monocytes % 12.2 % (1.7-12.7); NRBC # 0.08 10*3/uL; Neutrophils # 6.4 10*3/uL (1.4-7.4); Neutrophils % 77.5 % (38.7-73.9); Platelet Count 102 T/CUMM (130-400); Red Blood Count 2.93 MC/CUMM (3.8-5.5); Red Cell Distribution Width 24.3 % (9.3-17.3); White Blood Count 8.2 T/CUMM (4-12)
[2017-06-26 07:19] LABS: Hemoglobin 7.6 GM/DL (12.0-16.0)
[2017-06-26 07:43] LABS: Anisocytosis 1+; Calcium 8.4 MG/DL (8.5-10.1); Hypochromasia 1+; Microcytosis 1+; Osmolality,Calculated 298.1 MOS/KG (273-304); Polychromasia Slight; Potassium 3.2 MMOL/L (3.5-5.1); Target Cells Few
[2017-06-26 07:44] LABS: Ovalocytes Slight; Platelet Estimate Decreased
[2017-06-26 07:48] LABS: Albumin 2.4 G/DL (3.4-5.0); Bilirubin,Direct 0.76 MG/DL (0.0-0.20); Bilirubin,Indirect 0.3 MG/DL (0.0-1.0); Bilirubin,Total 1.1 MG/DL (0.2-1.0); Total Protein 7.5 G/DL (6.4-8.3)
[2017-06-26] MEDS: EPOETIN ALFA 10,000 UNIT/1 ML VIAL SUBCUT SCH (08:03)
[2017-06-26] MEDS: ASPIRIN CHEW 81 MG TABLET PO SCH (08:04)
[2017-06-26] MEDS: RIFAXIMIN 550 MG TABLET NG SCH ×2 (08:04→20:32)
[2017-06-26] MEDS: methylPREDNISolone SOD SUC 40 MG/1 ML VIAL IV SCH (08:04)
[2017-06-26] MEDS: PANTOPRAZOLE 40 MG VIAL IV SCH ×2 (08:04→20:32)
[2017-06-26] MEDS: HYDROXYCHLOROQUINE 200 MG TABLET PO SCH ×2 (08:04→20:32)
[2017-06-26] MEDS: amLODIPine 5 MG TABLET PO SCH (08:04)
[2017-06-26] MEDS: CIPROFLOXACIN INJ 200 MG in PREMIX 1 EACH IV SCH (08:04)
[2017-06-26] MEDS ORDERED: POTASSIUM CHLORIDE 20 MEQ TABLET PO ONE (09:31)
[2017-06-26] MEDS ORDERED: SODIUM CHLORIDE 0.9% 1,000 ML IV PRN (11:20)
[2017-06-26] MEDS ORDERED: VANCOMYCIN INJ 750 MG in SODIUM CHLORIDE 0.9% 250 ML IV ONE (21:00)
[2017-06-27 03:53] LABS: Basophils % 0.2 % (0.0-0.8); Eosinophils # 0.3 10*3/uL (0.0-0.87); Eosinophils % 3.5 % (0.00-10.9); Hematocrit 30.3 VOL% (35.7-47.0); Hemoglobin 9.8 GM/DL (12.0-16.0); Immature Granulocytes % 0.6 %; Immature Granulocytes Absolute 0.05 #; Lymphocytes # 0.3 10*3/uL (1.4-4.0); Lymphocytes % 3.8 % (21.3-54.2); Mean Corpuscular HGB Conc 32.3 GM/DL (32-36); Mean Corpuscular Hemoglobin 27 PG (27-34); Mean Corpuscular Volume 82.8 FL (87-102); Monocytes # 0.9 10*3/uL (0.11-0.8); Monocytes % 10.4 % (1.7-12.7); NRBC # 0.08 10*3/uL; Neutrophils # 7.2 10*3/uL (1.4-7.4); Neutrophils % 81.5 % (38.7-73.9); Platelet Count 91 T/CUMM (130-400); Red Blood Count 3.66 MC/CUMM (3.8-5.5); Red Cell Distribution Width 20.6 % (9.3-17.3); White Blood Count 8.8 T/CUMM (4-12)
[2017-06-27 05:09] LABS: Band Neutrophils 3 % (0-10); Eosinophils 1 % (0-10); Lymphocytes 2 % (20-55); Segmented Neutrophils 89 % (50-85); Total Cells Counted 100
[2017-06-27 05:10] LABS: Acanthocytes 1+; Anisocytosis 1+; Hypochromasia 1+; Ovalocytes 1+
[2017-06-27 05:11] LABS: Platelet Estimate Adequate; Target Cells Few
[2017-06-27] MEDS: LACTULOSE 20 GM/30 ML UDCUP NG SCH ×4 (05:40→23:37)
[2017-06-27] MEDS: INSULIN LISPRO 100 UNIT/ML SUBCUT SCH ×3 (05:44→17:30)
[2017-06-27] MEDS: HYDROXYCHLOROQUINE 200 MG TABLET PO SCH ×2 (08:11→20:13)
[2017-06-27] MEDS: ASPIRIN CHEW 81 MG TABLET PO SCH (08:11)
[2017-06-27] MEDS: PANTOPRAZOLE 40 MG VIAL IV SCH ×2 (08:11→20:13)
[2017-06-27] MEDS: methylPREDNISolone SOD SUC 40 MG/1 ML VIAL IV SCH (08:11)
[2017-06-27] MEDS: CIPROFLOXACIN INJ 200 MG in PREMIX 1 EACH IV SCH (08:11)
[2017-06-27] MEDS: RIFAXIMIN 550 MG TABLET NG SCH ×2 (08:12→20:14)
[2017-06-27] MEDS: amLODIPine 5 MG TABLET PO SCH (08:12)
[2017-06-27] MEDS: ALBUTEROL/IPRATROPIUM 3 ML NEB RESP TX SCH ×3 (10:55→19:58)
[2017-06-27] MEDS: PIPERACILLIN/TAZOBACTAM 3,375 MG in SODIUM CHLORIDE 0.9% 100 ML IV SCH ×2 (13:07→23:23)
[2017-06-28] MEDS: ALBUTEROL/IPRATROPIUM 3 ML NEB RESP TX SCH ×7 (00:12→23:44)
[2017-06-28] MEDS ORDERED: hydrALAZINE 20 MG/1 ML VIAL IV ONE (00:30)
[2017-06-28] MEDS: INSULIN LISPRO 100 UNIT/ML SUBCUT SCH ×4 (00:42→21:03)
[2017-06-28] MEDS: LACTULOSE 20 GM/30 ML UDCUP NG SCH ×5 (06:34→17:45)
[2017-06-28 06:42] LABS: Basophils % 0.2 % (0.0-0.8); Eosinophils # 0.1 10*3/uL (0.0-0.87); Eosinophils % 1.3 % (0.00-10.9); Hematocrit 28.5 VOL% (35.7-47.0); Hemoglobin 9.1 GM/DL (12.0-16.0); Immature Granulocytes % 0.6 %; Immature Granulocytes Absolute 0.06 #; Lymphocytes # 0.4 10*3/uL (1.4-4.0); Lymphocytes % 3.9 % (21.3-54.2); Mean Corpuscular HGB Conc 31.9 GM/DL (32-36); Mean Corpuscular Hemoglobin 27 PG (27-34); Mean Corpuscular Volume 85.1 FL (87-102); Monocytes # 1.1 10*3/uL (0.11-0.8); Monocytes % 11.4 % (1.7-12.7); NRBC # 0.12 10*3/uL; Neutrophils # 7.9 10*3/uL (1.4-7.4); Neutrophils % 82.6 % (38.7-73.9); Platelet Count 78 T/CUMM (130-400); Red Blood Count 3.35 MC/CUMM (3.8-5.5); White Blood Count 9.5 T/CUMM (4-12)
[2017-06-28 07:08] LABS: Calcium 8.8 MG/DL (8.5-10.1); Osmolality,Calculated 310.7 MOS/KG (273-304); Potassium 3.5 MMOL/L (3.5-5.1)
[2017-06-28 07:23] LABS: Hypochromasia 1+; Macrocytosis 1+; Platelet Estimate Decreased
[2017-06-28] MEDS: ASPIRIN CHEW 81 MG TABLET PO SCH (10:13)
[2017-06-28] MEDS: amLODIPine 5 MG TABLET PO SCH (10:13)
[2017-06-28] MEDS: RIFAXIMIN 550 MG TABLET NG SCH (10:13)
[2017-06-28] MEDS: PANTOPRAZOLE 40 MG VIAL IV SCH ×2 (10:14→21:03)
[2017-06-28] MEDS: methylPREDNISolone SOD SUC 40 MG/1 ML VIAL IV SCH (10:14)
[2017-06-28] MEDS: HYDROXYCHLOROQUINE 200 MG TABLET PO SCH ×2 (10:22→21:03)
[2017-06-28] MEDS: CIPROFLOXACIN INJ 200 MG in PREMIX 1 EACH IV SCH ×2 (10:24→11:30)
[2017-06-28] MEDS: PIPERACILLIN/TAZOBACTAM 3,375 MG in SODIUM CHLORIDE 0.9% 100 ML IV SCH (11:01)
[2017-06-29] MEDS: INSULIN LISPRO 100 UNIT/ML SUBCUT SCH ×5 (00:22→23:28)
[2017-06-29] MEDS: PIPERACILLIN/TAZOBACTAM 3,375 MG in SODIUM CHLORIDE 0.9% 100 ML IV SCH ×3 (00:23→23:25)
[2017-06-29] MEDS: LACTULOSE 20 GM/30 ML UDCUP NG SCH ×4 (00:23→23:24)
[2017-06-29] MEDS: ALBUTEROL/IPRATROPIUM 3 ML NEB RESP TX SCH ×5 (03:08→19:43)
[2017-06-29 06:29] LABS: Basophils % 0.3 % (0.0-0.8); Eosinophils # 0.2 10*3/uL (0.0-0.87); Eosinophils % 2.2 % (0.00-10.9); Hematocrit 27.5 VOL% (35.7-47.0); Hemoglobin 8.8 GM/DL (12.0-16.0); Immature Granulocytes % 1.1 %; Immature Granulocytes Absolute 0.11 #; Lymphocytes # 0.5 10*3/uL (1.4-4.0); Lymphocytes % 5.2 % (21.3-54.2); Mean Corpuscular Hemoglobin 28 PG (27-34); Mean Corpuscular Volume 88.1 FL (87-102); Monocytes # 1.1 10*3/uL (0.11-0.8); Monocytes % 10.6 % (1.7-12.7); NRBC # 0.12 10*3/uL; Neutrophils # 8.5 10*3/uL (1.4-7.4); Neutrophils % 80.6 % (38.7-73.9); Platelet Count 92 T/CUMM (130-400); Red Blood Count 3.12 MC/CUMM (3.8-5.5); Red Cell Distribution Width 23.4 % (9.3-17.3); White Blood Count 10.5 T/CUMM (4-12)
[2017-06-29 06:56] LABS: Giant Platelets Few; Hypochromasia 1+; Lymphocytes 4 % (20-55); Microcytosis Slight; Nucleated Red Blood Cells 1 (0-5); Ovalocytes Slight; Platelet Estimate Decreased; Segmented Neutrophils 88 % (50-85); Total Cells Counted 100
[2017-06-29 07:06] LABS: Calcium 9.1 MG/DL (8.5-10.1); Osmolality,Calculated 322.1 MOS/KG (273-304); Potassium 3.4 MMOL/L (3.5-5.1)
[2017-06-29] MEDS: amLODIPine 5 MG TABLET PO SCH (08:05)
[2017-06-29] MEDS: ASPIRIN CHEW 81 MG TABLET PO SCH (08:05)
[2017-06-29] MEDS: PANTOPRAZOLE 40 MG VIAL IV SCH ×2 (08:05→23:24)
[2017-06-29] MEDS: HYDROXYCHLOROQUINE 200 MG TABLET PO SCH ×2 (08:05→23:24)
[2017-06-29] MEDS: methylPREDNISolone SOD SUC 40 MG/1 ML VIAL IV SCH (08:06)
[2017-06-29] MEDS: CIPROFLOXACIN INJ 200 MG in PREMIX 1 EACH IV SCH (08:08)
[2017-06-29] MEDS: EPOETIN ALFA 10,000 UNIT/1 ML VIAL SUBCUT SCH (12:25)
[2017-06-29] MEDS ORDERED: EPOETIN ALFA 10,000 UNIT/1 ML VIAL IV SCH (12:30)
[2017-06-29] MEDS ORDERED: VANCOMYCIN INJ 750 MG in SODIUM CHLORIDE 0.9% 250 ML IV ONE (17:00)
[2017-06-30] MEDS: LACTULOSE 20 GM/30 ML UDCUP NG SCH ×3 (00:11→22:53)
[2017-06-30] MEDS: ALBUTEROL/IPRATROPIUM 3 ML NEB RESP TX SCH ×6 (00:49→19:31)
[2017-06-30] MEDS: LACTULOSE 160 GM/240 ML BOTTLE RECTAL SCH ×2 (01:20→09:23)
[2017-06-30 05:26] LABS: Basophils % 0.1 % (0.0-0.8); Eosinophils # 0.2 10*3/uL (0.0-0.87); Eosinophils % 2.2 % (0.00-10.9); Hematocrit 23.8 VOL% (35.7-47.0); Hemoglobin 8.3 GM/DL (12.0-16.0); Immature Granulocytes % 0.6 %; Immature Granulocytes Absolute 0.05 #; Lymphocytes # 0.6 10*3/uL (1.4-4.0); Lymphocytes % 7.5 % (21.3-54.2); Mean Corpuscular HGB Conc 34.9 GM/DL (32-36); Mean Corpuscular Hemoglobin 31 PG (27-34); Mean Corpuscular Volume 88.1 FL (87-102); Monocytes % 11.2 % (1.7-12.7); NRBC # 0.18 10*3/uL; Neutrophils # 6.7 10*3/uL (1.4-7.4); Neutrophils % 78.4 % (38.7-73.9); Platelet Count 93 T/CUMM (130-400); Red Cell Distribution Width 24.6 % (9.3-17.3); White Blood Count 8.5 T/CUMM (4-12)
[2017-06-30 05:47] LABS: Band Neutrophils 2 % (0-10); Eosinophils 1 % (0-10); Giant Platelets Few; Hypochromasia 1+; Lymphocytes 6 % (20-55); Microcytosis Slight; Nucleated Red Blood Cells 3 (0-5); Ovalocytes Slight; Platelet Estimate Decreased; Segmented Neutrophils 79 % (50-85); Total Cells Counted 100
[2017-06-30] MEDS: INSULIN LISPRO 100 UNIT/ML SUBCUT SCH ×3 (05:56→18:29)
[2017-06-30 06:01] LABS: Calcium 8.6 MG/DL (8.5-10.1); Potassium 3.4 MMOL/L (3.5-5.1)
[2017-06-30] MEDS ORDERED: SODIUM CHLORIDE 0.9% 1,000 ML IV PRN (09:07)
[2017-06-30] MEDS ORDERED: FUROSEMIDE 20 MG/2 ML VIAL IV PRN (09:07)
[2017-06-30] MEDS: ASPIRIN CHEW 81 MG TABLET PO SCH (09:15)
[2017-06-30] MEDS: HYDROXYCHLOROQUINE 200 MG TABLET PO SCH ×2 (09:15→22:54)
[2017-06-30] MEDS: methylPREDNISolone SOD SUC 40 MG/1 ML VIAL IV SCH (09:15)
[2017-06-30] MEDS: amLODIPine 5 MG TABLET PO SCH (09:15)
[2017-06-30] MEDS: PANTOPRAZOLE 40 MG VIAL IV SCH ×2 (09:15→22:53)
[2017-07-01] MEDS: ALBUTEROL/IPRATROPIUM 3 ML NEB RESP TX SCH ×7 (00:30→22:31)
[2017-07-01] MEDS: INSULIN LISPRO 100 UNIT/ML SUBCUT SCH ×5 (06:16→23:12)
[2017-07-01 07:03] LABS: Basophils % 0.3 % (0.0-0.8); Eosinophils # 0.3 10*3/uL (0.0-0.87); Eosinophils % 4.4 % (0.00-10.9); Hematocrit 29.3 VOL% (35.7-47.0); Immature Granulocytes % 0.4 %; Immature Granulocytes Absolute 0.03 #; Lymphocytes # 0.9 10*3/uL (1.4-4.0); Lymphocytes % 12.2 % (21.3-54.2); Mean Corpuscular HGB Conc 34.8 GM/DL (32-36); Mean Corpuscular Hemoglobin 31 PG (27-34); Mean Corpuscular Volume 89.1 FL (87-102); Monocytes # 0.8 10*3/uL (0.11-0.8); Monocytes % 11.7 % (1.7-12.7); NRBC # 0.09 10*3/uL; Neutrophils # 5.1 10*3/uL (1.4-7.4); Platelet Count 95 T/CUMM (130-400); Red Cell Distribution Width 22.2 % (9.3-17.3); White Blood Count 7.1 T/CUMM (4-12)
[2017-07-01 07:04] LABS: Red Blood Count 3.29 MC/CUMM (3.8-5.5)
[2017-07-01 07:05] LABS: Hemoglobin 10.2 GM/DL (12.0-16.0)
[2017-07-01 07:28] LABS: Eosinophils 3 % (0-10); Hypochromasia 1+; Lymphocytes 7 % (20-55); Nucleated Red Blood Cells 1 (0-5); Ovalocytes Slight; Platelet Estimate Decreased; Segmented Neutrophils 80 % (50-85); Total Cells Counted 100
[2017-07-01 07:29] LABS: Giant Platelets Few; Microcytosis Slight
[2017-07-01 07:34] LABS: Albumin 2.2 G/DL (3.4-5.0); Bilirubin,Total 1.2 MG/DL (0.2-1.0); Calcium 8.3 MG/DL (8.5-10.1); Total Protein 7.4 G/DL (6.4-8.3)
[2017-07-01 07:35] LABS: Osmolality,Calculated 292.1 MOS/KG (273-304); Potassium 3.3 MMOL/L (3.5-5.1)
[2017-07-01] MEDS: amLODIPine 5 MG TABLET PO SCH (07:35)
[2017-07-01] MEDS: PANTOPRAZOLE 40 MG VIAL IV SCH ×2 (07:35→20:11)
[2017-07-01] MEDS: LACTULOSE 20 GM/30 ML UDCUP NG SCH ×2 (07:35→20:11)
[2017-07-01] MEDS: HYDROXYCHLOROQUINE 200 MG TABLET PO SCH ×2 (07:35→20:10)
[2017-07-01] MEDS ORDERED: LIDOCAINE 2% 5 ML VIAL ONE (12:35)
[2017-07-01] MEDS ORDERED: PROPOFOL 200 MG/20 ML VIAL IV ONE (12:35)
[2017-07-01] MEDS: methylPREDNISolone SOD SUC 40 MG/1 ML VIAL IV SCH (16:17)
[2017-07-02] MEDS: ALBUTEROL/IPRATROPIUM 3 ML NEB RESP TX SCH ×3 (02:37→11:06)
[2017-07-02 05:21] LABS: Basophils % 0.3 % (0.0-0.8); Hematocrit 29.1 VOL% (35.7-47.0); Hemoglobin 10.1 GM/DL (12.0-16.0); Immature Granulocytes Absolute 0.06 #; Lymphocytes # 0.6 10*3/uL (1.4-4.0); Lymphocytes % 10.8 % (21.3-54.2); Mean Corpuscular HGB Conc 34.7 GM/DL (32-36); Mean Corpuscular Hemoglobin 32 PG (27-34); Mean Corpuscular Volume 90.9 FL (87-102); Monocytes # 0.5 10*3/uL (0.11-0.8); Monocytes % 9.1 % (1.7-12.7); NRBC # 0.09 10*3/uL; Neutrophils # 4.7 10*3/uL (1.4-7.4); Neutrophils % 78.8 % (38.7-73.9); Platelet Count 107 T/CUMM (130-400); Red Cell Distribution Width 22.4 % (9.3-17.3); White Blood Count 5.9 T/CUMM (4-12)
[2017-07-02] MEDS: INSULIN LISPRO 100 UNIT/ML SUBCUT SCH ×2 (05:59→12:24)
[2017-07-02 06:03] LABS: Albumin 2.4 G/DL (3.4-5.0); Bilirubin,Total 1.1 MG/DL (0.2-1.0); Calcium 8.2 MG/DL (8.5-10.1); Osmolality,Calculated 283.7 MOS/KG (273-304); Potassium 3.6 MMOL/L (3.5-5.1); Total Protein 7.7 G/DL (6.4-8.3)
[2017-07-02 06:07] LABS: Platelet Estimate Decreased
[2017-07-02] MEDS: LACTULOSE 20 GM/30 ML UDCUP NG SCH (08:47)
[2017-07-02] MEDS: amLODIPine 5 MG TABLET PO SCH (08:47)
[2017-07-02] MEDS: HYDROXYCHLOROQUINE 200 MG TABLET PO SCH (08:48)
[2017-07-02] MEDS: methylPREDNISolone SOD SUC 40 MG/1 ML VIAL IV SCH (08:48)
[2017-07-02] MEDS: PANTOPRAZOLE 40 MG VIAL IV SCH (08:48)
[2017-07-02 16:59] VITALS: BP 166/78
== END 2017-07-02 17:49 | DRG 673 ==
LOC: EDBD → EDUNIT# → N.ED 08:53 → N.EDINP 12:18 → SUATTDRO 12:18 → N.ICU 17:30 → N.5E 06-27 14:16
PROVIDERS: ADMIT Internal Medicine; ATTEND Internal Medicine